=== PATIENT | male | born 1995 | race Caucasian/White ===

== ENCOUNTER 2018-02-19 23:02 | Observation (INO) | payer MEDICAID ==
[~2018-02-19] VITALS: Ht 167.6 cm; Wt 98.4 kg
[2018-02-19 23:36] LABS: BASOPHILS % 0.4 % (0.0-2.0); EOSINOPHILS % 0.7 % (0.0-5.0); HEMATOCRIT. 46.4 % (42.0-52.0); HEMOGLOBIN. 16.1 g/dL (14.0-18.0); LYMPHOCYTES % 39.7 % (20.0-50.0); MEAN CORPUSCULAR VOLUME 92.6 fL (80.0-94.0); MONOCYTES % 5.6 % (2.0-8.0); NEUTROPHILS % 53.6 % (40.0-76.0); PLATELET 256 x1000/uL (130-400); RED BLOOD CELL COUNT 5.01 mill/uL (4.7-6.1); RED CELL DISTRIBUTION WIDTH 13.6 % (11.6-14.6)
[2018-02-19 23:41] LABS: CHLORIDE 102 mEq/L (98-107)
[2018-02-19 23:45] LABS: ETHANOL BLOOD 105 mg/dL
[2018-02-19 23:50] LABS: CREATINE KINASE 186 IU/L (39-308)
[2018-02-20 00:01] LABS: CLARITY URINE CLEAR (CLEAR); COLOR URINE YELLOW (YELLOW); KETONES URINE NEGATIVE (NEGATIVE); LEUKOCYTE ESTERASE URINE NEGATIVE (NEGATIVE); NITRITE URINE NEGATIVE (NEGATIVE); OCCULT BLOOD URINE 1+ (NEGATIVE); PROTEIN URINE 2+ (NEGATIVE); UROBILINOGEN URINE 0.2 E.U./dL (0.2-1.0)
[2018-02-20 00:21] LABS: *AMPHETAMINES SCREEN URINE NEGATIVE (NEGATIVE); *BARBITURATES SCREEN URINE NEGATIVE (NEGATIVE); *BENZODIAZEPINES SCREEN URINE NEGATIVE (NEGATIVE)
[2018-02-20 00:22] LABS: *COCAINE SCREEN URINE NEGATIVE (NEGATIVE); METHADONE URINE SCREEN NEGATIVE (NEGATIVE); OPIATES URINE SCREEN NEGATIVE (NEGATIVE); PHENCYCLIDINE URINE SCREEN NEGATIVE (NEGATIVE)
[2018-02-20 00:23] LABS: CANNABINOID URINE SCREEN PRESUMTIVE POSITIVE (NEGATIVE)
[2018-02-20] MEDS ORDERED: SODIUM CHLORIDE 0.9% 1000ML BAG (SEPSIS BOLUS) IV ONE (02:00)
[2018-02-20 11:05] VITALS: BP 149/73
[2018-02-20] MEDS ORDERED: LORAZEPAM 2MG/ML CPJ IV PRN (11:15)
[2018-02-20] MEDS ORDERED: ONDANSETRON HCL 4MG/2ML VIAL IV PRN (11:15)
[2018-02-20] MEDS ORDERED: ACETAMINOPHEN 325MG TABLET PO PRN (11:15)
[2018-02-20] MEDS ORDERED: IPRATROPIUM/ALBUTEROL 0.5-3(2.5)MG/3ML NEB INH PRN (11:15)
[2018-02-20] MEDS ORDERED: CLONIDINE 0.1MG TABLET PO PRN (11:15)
[2018-02-20] MEDS ORDERED: SODIUM CHLORIDE 0.9% 1,000 ML IV SCH (11:15)
[2018-02-20 12:00] VITALS: BP 149/73
[2018-02-20] MEDS ORDERED: THIAMINE HCL 100MG TABLET PO SCH (12:00)
[2018-02-20] MEDS ORDERED: FOLIC ACID 1MG TABLET PO SCH (12:00)
[2018-02-20] MEDS ORDERED: MULTIVITAMINS,THER W-MINERALS TABLET PO SCH (12:00)
[2018-02-20 12:25] LABS: HEMATOCRIT 46.9 % (42.0-52.0); MEAN CORPUSCULAR HEMOGLOBIN 31.7 pg (28.0-32.0); MEAN CORPUSCULAR VOLUME 92.8 fL (80.0-94.0); PLATELET 237 x1000/uL (130-400); RED BLOOD CELL COUNT 5.05 mill/uL (4.7-6.1); RED CELL DISTRIBUTION WIDTH 13.6 % (11.6-14.6)
[2018-02-20 12:29] LABS: CHLORIDE 103 mEq/L (98-107)
[2018-02-20] MEDS ORDERED: KCL 10MEQ/50ML PREMIX 50 ML IV NR (14:00)
[2018-02-20 18:07] LABS: CREATINE KINASE 133 IU/L (39-308)
[2018-02-20 19:07] LABS: PHOSPHORUS 3.5 mg/dL (2.5-4.9)
[2018-02-20 20:00] VITALS: BP_SYST 132; BP_SYST 135; BP_DIAS 77; BP_DIAS 80; BP_DIAS 81
[2018-02-20] MEDS ORDERED: CEFTRIAXONE 1 G PREMIX 50 ML IV SCH (21:00)
[2018-02-20 22:14] VITALS: BP 132/77
== END 2018-02-20 22:55 | disposition short-term general hospital (02) ==
LOC: ER 23:02 → INTOOBSV 02-20 01:56 → 5WST 02-20 01:56 → ENRESERV 02-20 10:12
PROVIDERS: ADMIT Internal Medicine; ATTEND Internal Medicine
DX: J96.00 Acute respiratory failure, unspecified whether with hypoxia or hypercapnia (principal); F10.129 Alcohol abuse with intoxication, unspecified; F12.929 Cannabis use, unspecified with intoxication, unspecified; D72.829 Elevated white blood cell count, unspecified; E86.0 Dehydration; E87.6 Hypokalemia; E03.9 Hypothyroidism, unspecified; R73.9 Hyperglycemia, unspecified
CPT/HCPCS: 36415; 70450; 71045; 76700; 80048; 80053; 80305; 80307; 80329; 81003; 82550; 82553; 82962; 83036; 83735; 84100; 84443; 84484; 85025; 85027; 87040; 93005; 93306; 93880; 96361; 96365; 96375; 99291; G0378; G0482; J0696; J2405; J3480; J7030